=== PATIENT | female | born 1960 | race Two or more races ===

== ENCOUNTER 2023-01-17 20:28 | Emergency (ER) | payer OTHER ==
[~2023-01-17] VITALS: Ht 154.9 cm; Wt 72.6 kg
--- NOTE | 2023-01-18 01:50 | NUR ---
PT AMB TO [facility] WITH DAUGHTER.
[2023-01-18] MEDS ORDERED: TDAP DIPH,PERTUSS,TET VAC/PF 0.5 ML DISP.SYRIN IM ONE (02:00)
--- NOTE | 2023-01-18 02:03 | NUR ---
LAB AT BEDSIDE DRAWING BLOOD.
[2023-01-18 02:14] LABS: HEMATOCRIT 37.5 % (31.2-41.9); MEAN CORPUSCULAR HEMOGLOBIN 33.2 uug (24.7-32.8); MEAN CORPUSCULAR VOLUME 99.3 fL (75.5-95.3); PLATELET COUNT (AUTO) 192 K/uL (179-408)
[2023-01-18] MEDS ORDERED: CIPROFLOXACIN IV 400 MG in PREMIXED 1 EACH IV SCH (02:30)
[2023-01-18] MEDS ORDERED: CLINDAMYCIN PHOSPHATE IV 600 MG in IV DEXTROSE 5% 100 ML IV ONE (02:30)
[2023-01-18 02:52] LABS: CREATININE 0.9 mg/dL (0.6-1.3); POTASSIUM 3.9 mmol/L (3.5-5.1)
[2023-01-18 02:58] LABS: BILIRUBIN,TOTAL 0.9 mg/dL (0.2-1.0); TOTAL PROTEIN, SERUM 8.3 g/dL (6.4-8.2)
[2023-01-18] MEDS: PIPERACILLIN SODIUM/TAZOBACTAM 4.5 G in IV DEXTROSE 5% 50 ML IV SCH ×2 (05:00→06:54)
[2023-01-18] MEDS ORDERED: CLINDAMYCIN 600 MG PIGGYBACK**ER OMNI IV ONE (05:14)
[2023-01-18] MEDS ORDERED: PIPERACILLIN/TAZO 4.5 GM VIAL IV ONE (05:14)
--- NOTE | 2023-01-18 07:15 | NUR ---
REPORT GIVEN TO FLAVIA TRINH.
--- NOTE | 2023-01-18 07:27 | NUR ---
pt. awake at this time, VSS at this time
--- NOTE | 2023-01-18 07:34 | NUR ---
REP0RT GIVEN TO PAZ TRINH AT [facility].
--- NOTE | 2023-01-18 07:41 | NUR ---
picking up by professional ambulance by 2 [employer]
[2023-01-18 08:14] VITALS: BP 122/80; TEMP 98; O2SAT 99
== END 2023-01-18 08:15 | disposition short-term general hospital (02) ==
LOC: ER 20:28
DX: S91.352A Open bite, left foot, initial encounter (principal); L03.116 Cellulitis of left lower limb; E11.9 Type 2 diabetes mellitus without complications; W55.01XA Bitten by cat, initial encounter; Y93.89 Activity, other specified; Y92.89 Other specified places as the place of occurrence of the external cause; Y99.8 Other external cause status
CPT/HCPCS: 99285; 96365; 80053; 85025; 86140; 87040; 36415; 73620; J2543; A4663; J0744; J3490